=== PATIENT | female | born 1980 | race American Indian/Alaskan Native ===

== ENCOUNTER 2018-07-23 12:25 | Emergency (ER) | payer OTHER ==
[2018-07-23] MEDS ORDERED: CATAPRES PO ONE (14:51)
--- NOTE | 2018-07-23 14:51 | Emergency Department Report ---
ED General Adult HPI - General Chief complaint: High BP Stated complaint: HYPERTENSION Time Seen by Provider: 07/23/18 14:21 Source: patient Mode of arrival: Ambulatory Limitations: No Limitations - History of Present Illness Initial comments: This is 38-year-old female presenting to the emergency room complaining that her blood pressure is high. She said she did not biometrics at work and it was elevated on 06/25/2018. She says she also went to the gym today and she wanted to find out what her blood pressure was and went to the urgent care and it was 178 over something so they sent her to the emergency room. Patient blood pressure here was 202/130. Patient says she has been told in the past that she has high blood pressure but was not placed on anything and they suggested lifestyle modification. She denies any chest pain, shortness of breath, headache, dizziness, nausea and her vomiting or numbness certainly to extremities. Denies any visual changes. Pain is 0 out of 10 at present. MD Complaint: high blood pressure -: month(s) Severity scale (0 -10): 0 Associated Symptoms: denies: confusion, chest pain, cough, diaphoresis, fever/ chills, headaches, loss of appetite, malaise, nausea/vomiting, rash, seizure, shortness of breath, syncope, weakness Treatments Prior to Arrival: none - Related Data Previous Rx's Medication Instructions Recorded Last Taken Type HYDROcodone/APAP 5-325 [[place] 1 each PO Q4HR PRN #20 tablet 05/08/16 Unknown Rx 5/325] Ondansetron [Zofran Odt] 4 mg PO Q8HR PRN #10 tab.rapdis 05/08/16 Unknown Rx Sulfamethoxazole/Trimethoprim 1 each PO BID #14 tablet 05/08/16 Unknown Rx [Bactrim DS TAB] Tamsulosin [Flomax] 0.4 mg PO QDAY #15 cap 05/08/16 Unknown Rx Triamter/Hctz 37.5-25 mg 1 tab PO QDAY 30 Days #30 tablet 07/23/18 Unknown Rx [Maxzide-25] Allergies Allergy/AdvReac Type Severity Reaction Status Date / Time No Known Allergies Allergy Verified 05/08/16 08:47 ED Review of Systems ROS: Stated complaint: HYPERTENSION Other details as noted in HPI Constitutional: denies: chills, fever Eyes: denies: eye pain, eye discharge, vision change ENT: denies: ear pain, throat pain, congestion Respiratory: denies: cough, shortness of breath, SOB with exertion, SOB at rest , stridor, wheezing Cardiovascular: denies: chest pain, palpitations, edema, syncope, paroxysmal nocturnal dyspnea Gastrointestinal: denies: abdominal pain, nausea, diarrhea Genitourinary: denies: urgency, dysuria, discharge Musculoskeletal: denies: back pain, joint swelling, arthralgia Skin: denies: rash, lesions Neurological: denies: headache, weakness, paresthesias Psychiatric: denies: anxiety, depression Hematological/Lymphatic: denies: easy bleeding, easy bruising ED Past Medical Hx - Past Medical History Previous Medical History?: Yes Hx Hypertension: Yes Additional medical history: KIDNEY STONES - Surgical History Past Surgical History?: Yes Hx Coronary Stent: No Hx Open Heart Surgery: No Hx Pacemaker: No Hx Internal Defibrillator: No Hx Cholecystectomy: No Hx Appendectomy: No Hx Breast Surgery: No - Family History Family history: CAD/SC, hypertension - Social History Smoking Status: Never Smoker Substance Use Type: None - Medications Home Medications: Home Medications Medication Instructions Recorded Confirmed Last Taken Type HYDROcodone/APAP 5-325 [[place] 1 each PO Q4HR PRN #20 tablet 05/08/16 Unknown Rx 5/325] Ondansetron [Zofran Odt] 4 mg PO Q8HR PRN #10 tab.rapdis 05/08/16 Unknown Rx Sulfamethoxazole/Trimethoprim 1 each PO BID #14 tablet 05/08/16 Unknown Rx [Bactrim DS TAB] Tamsulosin [Flomax] 0.4 mg PO QDAY #15 cap 05/08/16 Unknown Rx Triamter/Hctz 37.5-25 mg 1 tab PO QDAY 30 Days #30 tablet 07/23/18 Unknown Rx [Maxzide-25] ED Physical Exam - General Limitations: No Limitations General appearance: alert, in no apparent distress - Head Head exam: Present: atraumatic, normocephalic, normal inspection - Eye Eye exam: Present: normal appearance, PERRL, EOMI Pupils: Present: normal accommodation - ENT ENT exam: Present: normal exam, normal orophraynx, mucous membranes moist, TM's normal bilaterally, normal external ear exam - Neck Neck exam: Present: normal inspection, full ROM. Absent: tenderness, lymphadenopathy - Expanded Neck Exam Expanded Neck exam: Absent: anterior neck swelling, carotid bruit - Respiratory Respiratory exam: Present: normal lung sounds bilaterally. Absent: respiratory distress, chest wall tenderness - Cardiovascular Cardiovascular Exam: Present: regular rate, normal rhythm, normal heart sounds. Absent: systolic murmur, diastolic murmur - GI/Abdominal GI/Abdominal exam: Present: soft, normal bowel sounds. Absent: distended, tenderness, rebound, rigid, organomegaly, mass, bruit - Extremities Exam Extremities exam: Present: normal inspection, full ROM, normal capillary refill , other (No cce. + 2 pulses in all extremities, no neurovascular compromise). Absent: tenderness, pedal edema, joint swelling, calf tenderness - Back Exam Back exam: Present: normal inspection, full ROM, CVA tenderness (L), other ( ambulatory without any difficulties). Absent: tenderness, CVA tenderness (R), muscle spasm, paraspinal tenderness, vertebral tenderness, rash noted - Neurological Exam Neurological exam: Present: alert, oriented X3, normal gait, reflexes normal. Absent: motor sensory deficit - Psychiatric Psychiatric exam: Present: normal affect, normal mood - Skin Skin exam: Present: warm, dry, intact, normal color. Absent: rash ED Course Vital Signs 07/23/18 07/23/18 07/23/18 12:54 13:30 14:57 Temperature 99.2 F Pulse Rate 97 H 86 Respiratory 16 Rate Blood Pressure 202/130 146/90 Blood Pressure 174/117 [Right] O2 Sat by Pulse 99 Oximetry 07/23/18 16:26 Temperature Pulse Rate 97 H Respiratory 20 Rate Blood Pressure Blood Pressure 144/98 [Right] O2 Sat by Pulse Oximetry - Reevaluation(s) Reevaluation #1: 07/23/18 16:49 Patient given clonidine 0.1 mg emergency room which were brought her blood pressure down to 148/98. She remained stable throughout ED course ED Medical Decision Making - Lab Data Result diagrams: 07/23/18 15:08 07/23/18 15:08 Lab Results 07/23/18 07/23/18 Range/Units 15:08 15:08 WBC 8.2 (4.5-11.0) K/mm3 RBC 4.06 (3.65-5.03) M/mm3 Hgb 12.6 (10.1-14.3) gm/dl Hct 37.7 (30.3-42.9) % MCV 93 (79-97) fl MCH 31 (28-32) pg MCHC 33 (30-34) % RDW 13.0 L (13.2-15.2) % Plt Count 329 (140-440) K/mm3 Lymph % (Auto) 36.7 H (13.4-35.0) % [place] % (Auto) 4.1 (0.0-7.3) % Eos % (Auto) 2.3 (0.0-4.3) % Baso % (Auto) 1.4 (0.0-1.8) % Lymph # 3.0 (1.2-5.4) K/mm3 [place] # 0.3 (0.0-0.8) K/mm3 Eos # 0.2 (0.0-0.4) K/mm3 Baso # 0.1 (0.0-0.1) K/mm3 Seg Neutrophils % 55.5 (40.0-70.0) % Seg Neutrophils # 4.6 (1.8-7.7) K/mm3 Sodium 139 (137-145) mmol/L Potassium 3.6 (3.6-5.0) mmol/L Chloride 101.3 (98-107) mmol/L Carbon Dioxide 22 (22-30) mmol/L Anion Gap 19 mmol/L BUN 7 (7-17) mg/dL Creatinine 0.6 L (0.7-1.2) mg/dL Estimated GFR > 60 ml/min BUN/Creatinine Ratio 12 % Glucose 74 (65-100) mg/dL Calcium 8.9 (8.4-10.2) mg/dL - Medical Decision Making This is a 38-year-old female who reports that she was concerned about her blood pressure due to recent left thumb modification and she went to urgent care today to check on her blood pressure and it told to come to the emergency room because was elevated. Patient is asymptomatic with elevated blood pressure. I saw and examined patient and her physical exam is normal. CBC and BMP is stable. I discussed with patient her diagnosis and treatment plan and I also discussed lifestyle modification for her to continue to exercise,diet, no added salt to food to include low-sodium diet and low fat diet. I told her that exercise and weight loss is one of the best way to stabilize her blood pressure. She voiced understanding. I also told her that her blood pressure was at a high level and she can have a stroke, heart attack, kidney failure leading to if she does not manage her blood pressure. I discussed with her that she needs to keep a log of her blood pressure daily and record in the morning and when she gets up and schedule an appointment with primary care referral given to her for new patient physical and management of blood pressure. I discussed this with her blood pressure medication that she will be placed on. She voiced understanding and I told her to call tomorrow to schedule an appointment for primary care visit. Patient discharged home in stable condition, no pain, vital signs stable she is afebrile and she was given prescription for triamterene/HCTZ. Critical care attestation.: If time is entered above; I have spent that time in minutes in the direct care of this critically ill patient, excluding procedure time. ED Disposition Clinical Impression: Hypertension Qualifiers: Hypertension type: essential hypertension Qualified Code(s): I10 - Essential ( primary) hypertension Disposition: DC- TO HOME OR SELFCARE Is pt being admited?: No Does the pt Need Aspirin: No Condition: Stable Instructions: Hypertension (ED), DASH Eating Plan (ED), Low Sodium Diet (ED), Triamterene/Hydrochlorothiazide (By mouth), Heart Healthy Diet (ED), Low Fat Diet (ED), How to Take a Blood Pressure (ED) Additional Instructions: Please take blood pressure medication as instructed and see discharge information on triamterene/HCTZ. Keep adaily log of your blood pressure and schedule an appointment with primary care visit that I referred you to for a new patient visit and management of blood pressure Please see information on lifestyle modification to manage her blood pressure discharge instruction paperwork Please exercise at least 3-4 times a day for at least 45 minutes at a time to achieve weight loss. Increase your water intake If you develop headache, shortness of breath, nausea, chest pain vomiting, dizziness and/or blurred vision, abdominal pain, please return to the emergency room AIDAN as this could be a sign of high blood pressure He can purchase a blood pressure machine at the [facility] or [facility]. Prescriptions: Triamter/Hctz 37.5-25 mg [Maxzide-25] 1 tab PO QDAY 30 Days #30 tablet Referrals: JUAN KLEIN JR, MD [Staff Physician] - 3-5 Days MANDIE RAMIREZ MD [Staff Physician] - 3-5 Days Forms: Work/School Release Form(ED)
[2018-07-23 15:39] LABS: Basophils # (Auto) 0.1 K/mm3 (0.0-0.1); Basophils % (Auto) 1.4 % (0.0-1.8); Eosinophils # (Auto) 0.2 K/mm3 (0.0-0.4); Eosinophils % (Auto) 2.3 % (0.0-4.3); Hematocrit 37.7 % (30.3-42.9); Hemoglobin 12.6 gm/dl (10.1-14.3); Lymphocytes % (Auto) 36.7 % (13.4-35.0); Mean Corpuscular HGB Conc 33 % (30-34); Mean Corpuscular Hemoglobin 31 pg (28-32); Mean Corpuscular Volume 93 fl (79-97); Monocytes # (Auto) 0.3 K/mm3 (0.0-0.8); Monocytes % (Auto) 4.1 % (0.0-7.3); Platelet Count 329 K/mm3 (140-440); Red Blood Count 4.06 M/mm3 (3.65-5.03)
[2018-07-23 15:55] LABS: BUN/Creatinine Ratio 12; Blood Urea Nitrogen 7 mg/dL (7-17); Calcium 8.9 mg/dL (8.4-10.2); Hemolysis Index 15
[2018-07-23 16:27] VITALS: BP 144/98
[2018-07-23 17:02] LABS: Bilirubin,Urine NEG (Negative); Blood,Urine NEG (Negative); Color,Urine Yellow (Yellow); HCG Qualitative,Urine Negative (Negative); Mucus,Urine FEW /HPF; Protein,Urine <15 mg/dL mg/dL (Negative); Urobilinogen,Urine < 2.0 mg/dL (<2.0)
== END 2018-07-23 17:07 | disposition home or self-care (01) ==
LOC: ED 12:25
DX: I10 Essential (primary) hypertension (principal); Z87.442 Personal history of urinary calculi
CPT/HCPCS: 36415; 80048; 81001; 81025; 85025; 93005; 93010; 99283

== ENCOUNTER 2018-08-27 19:25 | Emergency (ER) | payer OTHER ==
[2018-08-27 20:52] LABS: Basophils # (Auto) 0.1 K/mm3 (0.0-0.1); Basophils % (Auto) 1.3 % (0.0-1.8); Eosinophils # (Auto) 0.3 K/mm3 (0.0-0.4); Eosinophils % (Auto) 3.7 % (0.0-4.3); Hematocrit 31.2 % (30.3-42.9); Hemoglobin 10.7 gm/dl (10.1-14.3); Lymphocytes # (Auto) 3.5 K/mm3 (1.2-5.4); Lymphocytes % (Auto) 38.1 % (13.4-35.0); Mean Corpuscular HGB Conc 34 % (30-34); Mean Corpuscular Hemoglobin 32 pg (28-32); Mean Corpuscular Volume 94 fl (79-97); Monocytes # (Auto) 0.5 K/mm3 (0.0-0.8); Monocytes % (Auto) 5.7 % (0.0-7.3); Platelet Count 336 K/mm3 (140-440); Red Cell Distribution Width 13.9 % (13.2-15.2)
[2018-08-27 22:12] LABS: Bilirubin,Urine NEG (Negative); Blood,Urine LG (Negative); Color,Urine Yellow (Yellow); Mucus,Urine FEW /HPF; Protein,Urine <15 mg/dL mg/dL (Negative); Urobilinogen,Urine < 2.0 mg/dL (<2.0)
[2018-08-27] MEDS ORDERED: KEFLEX PO ONE (23:03)
[2018-08-27] MEDS ORDERED: CATAPRES PO ONE (23:06)
[2018-08-28] MEDS ORDERED: CATAPRES ONE (00:12)
--- NOTE | 2018-08-28 03:03 | Emergency Department Report ---
HPI - General Chief Complaint: Vaginal Bleeding Time Seen by Provider: 08/27/18 23:00 - HPI HPI: The patient is a 38-year-old female with a significant history of irregular menstrual period, who presents for evaluation of vaginal bleeding. The patient reports consistent moderate in severity vaginal bleeding for the past 2 days, associated with cramping no abdominal pain on and off, resolved currently. The patient denies fever, chills, night sweats, diarrhea, blood in the stool, dark tarry stool, dysuria, hematuria, flank pain, genital discharge, inability to pass flatus. ED Past Medical Hx - Past Medical History Previous Medical History?: Yes Hx Hypertension: Yes Additional medical history: KIDNEY STONES - Surgical History Past Surgical History?: No Hx Coronary Stent: No Hx Open Heart Surgery: No Hx Pacemaker: No Hx Internal Defibrillator: No Hx Cholecystectomy: No Hx Appendectomy: No Hx Breast Surgery: No - Social History Smoking Status: Never Smoker Substance Use Type: None - Medications Home Medications: Home Medications Medication Instructions Recorded Confirmed Last Taken Type HYDROcodone/APAP 5-325 [[place] 1 each PO Q4HR PRN #20 tablet 05/08/16 Unknown Rx 5/325] Ondansetron [Zofran Odt] 4 mg PO Q8HR PRN #10 tab.rapdis 05/08/16 Unknown Rx Sulfamethoxazole/Trimethoprim 1 each PO BID #14 tablet 05/08/16 Unknown Rx [Bactrim DS TAB] Tamsulosin [Flomax] 0.4 mg PO QDAY #15 cap 05/08/16 Unknown Rx Triamter/Hctz 37.5-25 mg 1 tab PO QDAY 30 Days #30 tablet 07/23/18 Unknown Rx [Maxzide-25] amLODIPine [Norvasc] 5 mg PO DAILY #31 tab 08/28/18 Unknown Rx cephALEXin [Keflex] 500 mg PO Q6HR #20 capsule 08/28/18 Unknown Rx hydroCHLOROthiazide [HCTZ] 25 mg PO QDAY #30 tablet 08/28/18 Unknown Rx medroxyPROGESTERone ACETATE 5 mg PO QDAY #5 tablet 08/28/18 Unknown Rx [Provera] ED Review of Systems ROS: Stated complaint: HEAVY BLEEDING Other details as noted in HPI Constitutional: denies: fever ENT: denies: throat or neck pain Respiratory: denies: cough, shortness of breath Cardiovascular: denies: chest pain Endocrine: denies unexplained weight loss or gain Gastrointestinal: denies: abdominal pain, nausea Genitourinary: reports vb denies: dysuria Musculoskeletal: denies: leg swelling Skin: denies: rash Neurological: denies: headache Hematological/Lymphatic: denies: easy bleeding or easy bruising Psych: denies sadness or hopelessness Physical Exam - Physical Exam Vital Signs: Vital Signs 08/27/18 08/28/18 08/28/18 20:15 00:00 00:12 Temperature 97.9 F 98.2 F Pulse Rate 82 81 81 Respiratory 18 16 Rate Blood Pressure 141/100 147/96 Blood Pressure 147/96 [Left] O2 Sat by Pulse 99 100 Oximetry Physical Exam: General: well-nourished, well-developed, no acute distress Head: Normocephalic, atraumatic Eyes: normal sclera ENT: Mucous membranes are pale and dry Neck: No neck stiffness, no cervical adenopathy Respiratory: Breath sounds equal bilaterally, no wheezing, rales, or rhonchi Cardio: S1 and S2 present, no murmurs, rubs, gallops, capillary refill is delayed Abdomen: Normoactive bowel sounds, soft abdomen, suprapubic tenderness Chest WALL/Back: No tenderness to palpation of the chest wall, no CVA tenderness with percussion Musc: No pitting edema Skin: No rash Neuro: no facial drooping, normal speech Psych: Normal affect ED Course Vital Signs 08/27/18 08/28/18 08/28/18 20:15 00:00 00:12 Temperature 97.9 F 98.2 F Pulse Rate 82 81 81 Respiratory 18 16 Rate Blood Pressure 141/100 147/96 Blood Pressure 147/96 [Left] O2 Sat by Pulse 99 100 Oximetry ED Medical Decision Making - Lab Data Result diagrams: 08/27/18 20:21 - Medical Decision Making The patient was seen and examined by myself. The patient is placed on a pvc monitor and continuous pulse ox. On initial evaluation, the patient was found to be in no distress. Evaluation orders were placed. Lab results are reassuring including non-concerning levels of RBC, hemoglobin, hematocrit, negative test. The patient was reevaluated and reported that their symptoms were improved. As the patient has not concerning levels of RBC, hemoglobin, hematocrit, and platelets, with normal vital signs, and there is no evidence of severe bleeding requiring transfusion or other emergent management at this time, the patient is stable for discharge with outpatient follow-up. The patient is given follow-up and return instructions. The patient expressed understanding and agreed with the plan. The patient is discharged in stable condition. Critical care attestation.: If time is entered above; I have spent that time in minutes in the direct care of this critically ill patient, excluding procedure time. ED Disposition Clinical Impression: Acute lower UTI (urinary tract infection), Vagina bleeding Disposition: TO HOME OR SELFCARE Is pt being admited?: No Does the pt Need Aspirin: No Condition: Stable Instructions: Dysfunctional Uterine Bleeding (ED), Urinary Tract Infection in Women (ED) Referrals: VA BARLOW MD [Staff Physician] - 3-5 Days Time of Disposition: 02:56
[2018-08-28 03:36] VITALS: BP 122/79
== END 2018-08-28 03:37 | disposition home or self-care (01) ==
LOC: ED 19:25
DX: N93.9 Abnormal uterine and vaginal bleeding, unspecified (principal); N39.0 Urinary tract infection, site not specified; I10 Essential (primary) hypertension; Z87.442 Personal history of urinary calculi
CPT/HCPCS: 36415; 81001; 84703; 85025; 86850; 86900; 86901; 99284

== ENCOUNTER 2022-01-28 10:10 | Outpatient (CLI) | payer OTHER ==
--- NOTE | 2022-01-29 15:31 | Mammography Report ---
DIGITAL SCREENING MAMMOGRAM WITH CAD, 01/28/2022 CLINICAL INFORMATION / INDICATION: Routine screening mammography. TECHNIQUE: Digital bilateral 2D mammography was obtained in the craniocaudal and mediolateral obliqu e projections. This examination was interpreted with the benefit of Computer-Aided Detection analysis . COMPARISON: None. This is the patient's first mammogram. FINDINGS: Breast Density: There are scattered areas of fibroglandular density. Right breast: There is a round 5 mm density at the 10:00 position posterior depth. Left breast: There is a round 7 mm density at the 1:00 position middle depth. IMPRESSION: 1. Bilateral breast nodularity as described above which will require additional evaluation with bilat eral breast ultrasound. Follow up recommendation: Ultrasound BI-RADS Category 0: INCOMPLETE. Needs additional imaging evaluation and/or prior mammograms for giselle hernandez. A "normal" or negative report should not discourage follow up or biopsy of a clinically significant f inding. A written summary of these findings will be mailed to the patient. The patient will be entered into a mammography reporting system which will generate a reminder letter for the patient's next appointmen t at the appropriate interval. The [employer] recommends yearly mammograms starting at age 40 and continuing as l beau as a woman is in good health. Breast MRI is recommended for women with an approximate 20-25% or greater lifetime risk of breast cancer, including women with a strong family history of breast or ova yolanda cancer or who have been treated for Hodgkin's disease. Signer Name: Luci Orr MD Signed: 01/29/2022 3:26 PM Workstation Name: [email or web address]
== END 2022-01-28 10:11 | disposition home or self-care (01) ==
LOC: SPVWC 10:10
PROVIDERS: ATTEND Internal Medicine
DX: Z12.31 Encounter for screening mammogram for malignant neoplasm of breast (principal); N63.11 Unspecified lump in the right breast, upper outer quadrant; N63.21 Unspecified lump in the left breast, upper outer quadrant
CPT/HCPCS: 77067

== ENCOUNTER 2022-03-04 10:59 | Outpatient (CLI) | payer OTHER ==
--- NOTE | 2022-03-06 08:00 | Ultrasound Report ---
ULTRASOUND BREAST BILATERAL LIMITED, 03/04/2022 CLINICAL INFORMATION / INDICATION: 42-year-old woman presents for evaluation of abnormal findings on recent screening mammogram.. Technique: Limited COMPARISON: Recent mammogram 01/28/2022 FINDINGS: Right breast: There is a benign intramammary lymph node in the right breast at 9:00, 12 cm from nippl e, measuring 8 x 5 mm. A normal fatty hilum is present. This correlates with nodule seen on recent ma mmogram and needs no further evaluation. Left breast: There is benign intramammary lymph node in the 2:00 position of the left breast, 10 cm f rom nipple. The lymph node measures 9 x 7 mm and contains a normal fatty hilum. This correlates with mammographic finding and needs no further evaluation. IMPRESSION: No sonographic evidence of malignancy. Bilateral nodules on recent screening mammogram ar e proven to be benign intramammary lymph nodes and need no further evaluation. Follow up recommendation: Routine yearly BI-RADS Category 2: BENIGN. A normal or "negative" report should not preclude biopsy or follow-up of a clinically suspicious find ing. Signer Name: Jenifer Ho MD Signed: 03/06/2022 7:56 AM Workstation Name: [email or web address]
== END 2022-03-04 11:00 | disposition home or self-care (01) ==
LOC: US 10:59
PROVIDERS: ATTEND Internal Medicine
DX: N63.21 Unspecified lump in the left breast, upper outer quadrant (principal); N63.13 Unspecified lump in the right breast, lower outer quadrant; R92.8 Other abnormal and inconclusive findings on diagnostic imaging of breast